=== PATIENT | male | born 1940 | race Caucasian/White ===

== ENCOUNTER 2020-09-22 17:20 | Emergency (ER) | payer MEDICARE ==
[~2020-09-22] VITALS: Ht 157.5 cm; Wt 63.6 kg
--- NOTE | 2020-09-22 17:32 | NUR ---
grand daughter Sheri Garcia [phone] contact
--- NOTE | 2020-09-22 18:07 | NUR ---
pt smokes 4-[address] daily, he may not mention a need for a patch or anything, very quite and polite old man
[2020-09-22 18:08] LABS: BASOPHILS # (AUTO) 0.1 X10'3 (0-0.2); EOSINOPHILS # (AUTO) 0.2 X10'3 (0-0.9); HEMATOCRIT 41.6 % (42.0-52.0); HEMOGLOBIN 14.1 g/dl (14.0-17.9); LYMPHOCYTES # (AUTO) 1.4 X10'3 (1.1-4.8); LYMPHOCYTES % (AUTO) 16.1 % (21-51); MEAN CORPUSCULAR HEMOGLOBIN 33.3 PG (27.0-31.0); MEAN CORPUSCULAR VOLUME 97.8 FL (78-98); MONOCYTES # (AUTO) 0.8 X10'3 (0-0.9); MONOCYTES % (AUTO) 8.5 % (2-12); NEUTROPHILS # (AUTO) 6.4 X10'3 (1.8-7.7); NEUTROPHILS % (AUTO) 72.4 % (42-75); PLATELET COUNT 332 X10'3 (140-440); RED BLOOD COUNT 4.26 X10'6 (4.70-6.10); RED CELL DISTRIBUTION WIDTH 13.9 % (11.5-14.5); WHITE BLOOD COUNT 8.9 X10'3 (4.5-11.0)
[2020-09-22 18:16] LABS: CLARITY,URINE CLEAR (Clear); COLOR,URINE YELLOW (Yellow); GLUCOSE, URINE NEGATIVE (Neg); KETONES,URINE TRACE mg/dl (Neg); LEUKOCYTE ESTERASE ,URINE NEGATIVE (Neg); NITRITES, URINE NEGATIVE (Neg); OCCULT BLOOD,URINE NEGATIVE (Neg); PROTEIN,URINE NEGATIVE (Neg)
[2020-09-22 18:19] LABS: UA COLLECTION TYPE CLN CATCH MIDSTREAM
[2020-09-22 18:23] LABS: ALANINE AMINOTRANSFERASE 25 U/L (12-78); ALBUMIN 3.9 G/DL (3.4-5.0); ALBUMIN/GLOBULIN RATIO 1.2 (1.1-1.5); ALKALINE PHOSPHATASE 258 IU/L (46-116); ANION GAP 7 (8-16); ASPARTATE AMINO TRANSFERASE 17 U/L (10-37); BILIRUBIN,TOTAL 0.4 MG/DL (0.1-1.0); BLOOD UREA NITROGEN 15 MG/DL (7-18); CALCIUM 8.9 MG/DL (8.5-10.1); CHLORIDE 105 MMOL/L (99-107); CREATININE 0.88 MG/DL (0.60-1.10); GLUCOSE 99 MG/DL (70-104); POTASSIUM 3.7 MMOL/L (3.5-5.1); SODIUM 142 MMOL/L (135-145); TOTAL CARBON DIOXIDE 30.4 MMOL/L (24-32); TOTAL PROTEIN 7.1 G/DL (6.4-8.2); eGFR 83 ML/MIN
[2020-09-22 18:28] LABS: URINE AMPHETAMINE SCREEN NEGATIVE (Neg); URINE BARBITUATE SCREEN NEGATIVE (Neg); URINE BENZODIAZEPINES SCREEN NEGATIVE (Neg); URINE CANNABINOID SCREEN NEGATIVE (Neg); URINE COCAINE SCREEN NEGATIVE (Neg); URINE METHADONE SCREEN NEGATIVE (Neg); URINE OPIATE SCREEN NEGATIVE (Neg); URINE PHENCYCLIDINE SCREEN NEGATIVE (Neg)
[2020-09-22 18:32] LABS: ETHANOL < 0.010 GM/DL (0.0-0.010)
--- NOTE | 2020-09-22 19:00 | NUR ---
Pt laying awake in bed. Pt A/O x 1 (self). Spoke with sister and was able to obtain his medication list.
[2020-09-22] MEDS ORDERED: FLO0.4C PO (19:13)
[2020-09-22] MEDS ORDERED: DONE5TAB7 PO (19:13)
[2020-09-22] MEDS ORDERED: ASCO500T28 PO (19:13)
[2020-09-22] MEDS ORDERED: AMLO10TA28 PO (19:13)
[2020-09-22] MEDS ORDERED: ATOR40TA7 PO (19:13)
[2020-09-22] MEDS ORDERED: ZINC50TA67 PO (19:13)
--- NOTE | 2020-09-22 21:00 | NUR ---
Pt has been wandering around trying to find a way out almost constantly, needing redirection every few minutes. Pt would intermittently lie in bed, but only for a minute or two then get up again and try and get out.
--- NOTE | 2020-09-22 22:22 | NUR ---
Griffin undone in [facility] - 09/22/20 at 2224 by GENNALOR BONNIE TAYLOR ([employer] [place] [employer] HOME: [phone] CELL: [phone] Addendum: 09/22/20 at 2223 by GENNALOR Amendment francie in [facility] - 09/22/20 at 2224 by NCAYLOR ARLEY TAYLOR ([employer] [place] [employer] HOME: [phone] CELL: [phone]
--- NOTE | 2020-09-22 22:24 | NUR ---
ARLEY TAYLOR ([employer]STER IN [employer]) HOME: [phone] CELL: [phone]
--- NOTE | 2020-09-22 23:00 | NUR ---
Pt fell asleep around 2129 and remains asleep without signs of distress.
--- NOTE | 2020-09-23 01:00 | NUR ---
Pt sleeping calmly without signs of distress.
--- NOTE | 2020-09-23 03:00 | NUR ---
Pt up to the bathroom and then returned to bed and able to fall back to sleep.
--- NOTE | 2020-09-23 05:00 | NUR ---
Pt asleep in bed without signs of distress.
[2020-09-23 05:35] VITALS: BP_DIAS 83
--- NOTE | 2020-09-23 06:30 | NUR ---
Pt wandering in the unit. Pt given paper and crayon and he went back to his bed.
--- NOTE | 2020-09-23 07:30 | NUR ---
Pt sleeping. Respirations unlabored. NAD
[2020-09-23] MEDS ORDERED: tamsulosin 0.4mg capsule PO SCH (08:00)
[2020-09-23] MEDS ORDERED: amLODIPine 5mg tablet PO SCH (08:00)
[2020-09-23] MEDS ORDERED: atorvastatin 20mg tablet PO SCH (08:00)
[2020-09-23] MEDS ORDERED: donepezil 5mg tablet PO SCH (08:00)
[2020-09-23] MEDS ORDERED: zinc sulfate 220mg capsule PO SCH (08:00)
[2020-09-23] MEDS ORDERED: ascorbic acid 500mg tablet PO SCH (08:00)
[2020-09-23 08:23] VITALS: BP_SYST 131
--- NOTE | 2020-09-23 08:30 | NUR ---
Pt sitting up in bed eating breakfast.
--- NOTE | 2020-09-23 09:30 | NUR ---
Pt resting quietly in his bed. Pt denies any needs at this time.
--- NOTE | 2020-09-23 10:31 | NUR ---
Pt sleeping in his bed. Respirations unlabored. NAD
--- NOTE | 2020-09-23 11:08 | NUR ---
Pt's family called and asked we call Claudette at [facility] as they were wanting information on the patient from us. Spoke with Claudette and she asked that we fax over a cover sheet and the pt's chart for them to look at.
--- NOTE | 2020-09-23 11:24 | NUR ---
Case management returned the page. They will start working on helping get the pt placed at [facility]. She did ask that we go ahead and fax the requested face sheet and chart to [facility].
--- NOTE | 2020-09-23 11:26 | NUR ---
Pt wandering and stating, "I don't understand why I am in [facility]." Let pt know that we are trying to make sure he is safe when he leaves the hospital. Also, let him know that his family know where he is at and they are also working on trying to make sure things are safe for him. Pt was redirectable and went back to his bed.
--- NOTE | 2020-09-23 11:35 | NUR ---
Colleen from Case [employer] called back. She spoke with the pt's family and found out that the pt's brother, Elías Garcia, is the pt's POA. His number is [phone]. The pt's family is at [place] now talking with them. Colleen will talk with them once they leave there to see where they would like the pt placed. Addendum: 09/23/20 at 1209 by [email or web address] Brittni
--- NOTE | 2020-09-23 12:09 | NUR ---
Brittni called and asked if we could order a CXR to r/o TB for residential care placement and also a rapid COVID. Dr Dewitt gave verbal order for both.
--- NOTE | 2020-09-23 12:50 | NUR ---
Pt wandering around as he wants to walk. Let him know he is free to walk as long as he stays on this side of the curtains.
--- NOTE | 2020-09-23 13:29 | NUR ---
Pt resting quietly in bed.
--- NOTE | 2020-09-23 14:32 | NUR ---
Pt continues to wander around the unit. Pt easily reminded to stay on this side of the curtains.
--- NOTE | 2020-09-23 15:25 | NUR ---
Brittni the Manager Staffing is at pt's bedside speaking with the pt's niece at bedside.
--- NOTE | 2020-09-23 15:41 | NUR ---
Dr Stevens at bedside talking with pt and his niece. Pt's niece, Teresa, is willing to take the pt home for the weekend as they are not able to get him into [facility] until Saturday. Brittni, [employer], is faxing all the paperwork to [facility] and will f/u with them and the pt's family on Saturday.
--- NOTE | 2020-09-23 16:36 | NUR ---
I SPOKE WITH PATIENT'S SISTER IN LAW, ARLEY TAYLOR AND TAM YAN. THEY WISH TO PLACE PATIENT IN [facility]. RCFE FORM COMPLETED, AND SIGNED BY TAM AND DR AYALA. THIS HAS BEEN FAXED TO [facility]. EARLIER TODAY, I SPOKE WITH AUSTIN AT [facility]. THEY ARE AGREEABLE TO ACCEPTING ONCE PAPERWORK SUBMITTED, AND FINANCIAL INFORMATION PROVIDED. TAM PRESENTED TO BEDSIDE. SHE STATES THAT SHE WAS AT THE [email or web address] ALL DAY TODAY, TO OBTAIN NECESSARY FINANCIAL DOCUMENTATION FOR [facility]. THE [email or web address] NEEDS UNTIL SATURDAY TO PROVIDE THIS. TAM STATES THAT SHE WILL TAKE PATIENT HOME. SHE AND HER ADULT SON, WILL PROVIDE SUPERVISION UNTIL SATURDAY WHEN [facility] CAN TAKE HIM. DISCUSSED WITH RN AND DR AYALA. ALL ARE IN AGREEMENT WITH [facility] PLAN. CONTACT INFO: ANGELIAEllaTracieRoya [employer] AND ARLEY TAYLOR -BROTHER AND EMELIA. [phone] AND [phone] FARRAH TAYLOR [phone] [facility] FARRAH TAYLOR [phone]
== END 2020-09-23 15:56 ==
LOC: EDBD 17:20 → ER 17:20
DX: F03.90 Unspecified dementia, unspecified severity, without behavioral disturbance, psychotic disturbance, mood disturbance, and anxiety (principal); Z20.822 Contact with and (suspected) exposure to COVID-19; Z79.899 Other long term (current) drug therapy
CPT/HCPCS: 36415; 70450; 71046; 72125; 80053; 80305; 80320; 81003; 84443; 85025; 87426; 99285

== ENCOUNTER 2020-10-21 07:58 | Emergency (ER) | payer MEDICARE ==
[~2020-10-21] VITALS: Ht 175.3 cm; Wt 63.6 kg
[~2020-10-21 07:58] MED LIST: AMLO10TA28 PO; ASCO500T28 PO; ATOR40TA7 PO; DONE5TAB7 PO; FLO0.4C PO; ZINC50TA67 PO
[2020-10-21 09:00] LABS: BASOPHILS % (AUTO) 0.5 % (0-1); EOSINOPHILS # (AUTO) 0.3 X10'3 (0-0.9); EOSINOPHILS % (AUTO) 4.7 % (0-6); HEMOGLOBIN 12.2 g/dl (14.0-17.9); LYMPHOCYTES # (AUTO) 1.2 X10'3 (1.1-4.8); LYMPHOCYTES % (AUTO) 17.3 % (21-51); MEAN CORPUSCULAR HEMOGLOBIN 32.9 PG (27.0-31.0); MEAN CORPUSCULAR VOLUME 96.8 FL (78-98); MEAN PLATELET VOLUME 8.7 FL (7.4-10.4); MONOCYTES # (AUTO) 0.6 X10'3 (0-0.9); MONOCYTES % (AUTO) 9.1 % (2-12); NEUTROPHILS # (AUTO) 4.7 X10'3 (1.8-7.7); NEUTROPHILS % (AUTO) 68.4 % (42-75); PLATELET COUNT 237 X10'3 (140-440); RED BLOOD COUNT 3.72 X10'6 (4.70-6.10); RED CELL DISTRIBUTION WIDTH 13.6 % (11.5-14.5); WHITE BLOOD COUNT 6.9 X10'3 (4.5-11.0)
[2020-10-21 09:17] LABS: ALANINE AMINOTRANSFERASE 37 U/L (12-78); ALBUMIN 3.2 G/DL (3.4-5.0); ALBUMIN/GLOBULIN RATIO 1.1 (1.1-1.5); ALKALINE PHOSPHATASE 210 IU/L (46-116); ANION GAP 6 (8-16); ASPARTATE AMINO TRANSFERASE 20 U/L (10-37); BILIRUBIN,TOTAL 0.4 MG/DL (0.1-1.0); BLOOD UREA NITROGEN 15 MG/DL (7-18); BUN/CREATININE RATIO 29.4 (5.4-32.0); CALCIUM 8.4 MG/DL (8.5-10.1); CHLORIDE 111 MMOL/L (99-107); CREATININE 0.51 MG/DL (0.60-1.10); GLUCOSE 82 MG/DL (70-104); POTASSIUM 3.6 MMOL/L (3.5-5.1); SODIUM 147 MMOL/L (135-145); TOTAL CARBON DIOXIDE 29.7 MMOL/L (24-32); TOTAL PROTEIN 6.1 G/DL (6.4-8.2); eGFR > 90 ML/MIN
[2020-10-21 09:33] LABS: CLARITY,URINE CLEAR (Clear); COLOR,URINE STRAW (Yellow); GLUCOSE, URINE NEGATIVE (Neg); KETONES,URINE NEGATIVE (Neg); LEUKOCYTE ESTERASE ,URINE NEGATIVE (Neg); NITRITES, URINE NEGATIVE (Neg); OCCULT BLOOD,URINE NEGATIVE (Neg); PH,URINE 6.5 (4.8-8.0); PROTEIN,URINE NEGATIVE (Neg); UA COLLECTION TYPE FOLEY CATH; UROBILINOGEN,URINE 0.2 E.U/dL (0.2-1.0)
[2020-10-21 09:45] VITALS: BP 133/47
[2020-10-21 09:46] LABS: URINE AMPHETAMINE SCREEN NEGATIVE (Neg); URINE BARBITUATE SCREEN NEGATIVE (Neg); URINE BENZODIAZEPINES SCREEN NEGATIVE (Neg); URINE CANNABINOID SCREEN NEGATIVE (Neg); URINE COCAINE SCREEN NEGATIVE (Neg); URINE METHADONE SCREEN NEGATIVE (Neg); URINE OPIATE SCREEN NEGATIVE (Neg); URINE PHENCYCLIDINE SCREEN NEGATIVE (Neg)
[2020-10-21] MEDS ORDERED: NYST1000 PO (10:11)
--- NOTE | 2020-10-21 10:40 | NUR ---
Called listed number on chart and spoke with lilian Garcia, who stated that patient was living now at [facility] number [phone]. Called [facility] and was unable to speak to Nurse, Trinh. Baseball Inspector And Repairer stated that Trinh would call back when able.
--- NOTE | 2020-10-21 10:48 | NUR ---
Spoke with Trinh who stated that they usually use [facility] or family will give patient a ride back to [place]. SBAR report given to Trinh. Will reach out to [facility] [employer].
[2020-10-21] MEDS ORDERED: haloperidol lactate 5mg/ml inj IM ONE (10:55)
--- NOTE | 2020-10-21 11:40 | NUR ---
Devora from [facility] called regarding [facility] placement. She stated that Dr Mcgrath (Psyc) has read 1799 and is familiar with Pt. sends message that Pt will only need to be medically cleared for ED and that he wanted her to be a direct admit to [facility]. The admission had to do with her insurance being accepted.
== END 2020-10-21 12:27 | disposition home or self-care (01) ==
LOC: ER 07:58
DX: S42.031A Displaced fracture of lateral end of right clavicle, initial encounter for closed fracture (principal); R40.4 Transient alteration of awareness; B37.0 Candidal stomatitis; E87.0 Hyperosmolality and hypernatremia; A52.17 General paresis; Z79.899 Other long term (current) drug therapy; W01.198A Fall on same level from slipping, tripping and stumbling with subsequent striking against other object, initial encounter; Y93.89 Activity, other specified; Y92.89 Other specified places as the place of occurrence of the external cause; Y99.8 Other external cause status
CPT/HCPCS: 36415; 70450; 71045; 80053; 80305; 81003; 82948; 85025; 93005; 99285

== ENCOUNTER 2020-10-28 09:56 | Emergency (ER) | payer MEDICARE ==
[~2020-10-28] VITALS: Ht 167.6 cm; Wt 59.1 kg
[~2020-10-28 09:56] MED LIST changes: +NYST1000 PO
[2020-10-28 10:44] LABS: ALANINE AMINOTRANSFERASE 37 U/L (12-78); ALKALINE PHOSPHATASE 220 IU/L (46-116); ANION GAP 3 (8-16); ASPARTATE AMINO TRANSFERASE 22 U/L (10-37); BILIRUBIN,TOTAL 0.3 MG/DL (0.1-1.0); BLOOD UREA NITROGEN 11 MG/DL (7-18); BUN/CREATININE RATIO 25.6 (5.4-32.0); CALCIUM 8.3 MG/DL (8.5-10.1); CHLORIDE 109 MMOL/L (99-107); CREATININE 0.43 MG/DL (0.60-1.10); GLUCOSE 83 MG/DL (70-104); POTASSIUM 3.8 MMOL/L (3.5-5.1); SODIUM 143 MMOL/L (135-145); TOTAL CARBON DIOXIDE 30.8 MMOL/L (24-32); TOTAL PROTEIN 6.1 G/DL (6.4-8.2); eGFR > 90 ML/MIN
[2020-10-28 10:50] LABS: BASOPHILS # (AUTO) 0.1 X10'3 (0-0.2); BASOPHILS % (AUTO) 0.7 % (0-1); EOSINOPHILS # (AUTO) 0.4 X10'3 (0-0.9); HEMATOCRIT 34.7 % (42.0-52.0); LYMPHOCYTES # (AUTO) 1.9 X10'3 (1.1-4.8); MEAN CORPUSCULAR HEMOGLOBIN 33.5 PG (27.0-31.0); MEAN CORPUSCULAR HGB CONC 34.6 g/dL (33.0-36.5); MEAN CORPUSCULAR VOLUME 96.9 FL (78-98); MEAN PLATELET VOLUME 8.5 FL (7.4-10.4); MONOCYTES # (AUTO) 0.9 X10'3 (0-0.9); MONOCYTES % (AUTO) 10.4 % (2-12); NEUTROPHILS # (AUTO) 5.1 X10'3 (1.8-7.7); NEUTROPHILS % (AUTO) 60.9 % (42-75); PLATELET COUNT 258 X10'3 (140-440); RED BLOOD COUNT 3.59 X10'6 (4.70-6.10); RED CELL DISTRIBUTION WIDTH 13.6 % (11.5-14.5); WHITE BLOOD COUNT 8.4 X10'3 (4.5-11.0)
[2020-10-28 10:55] LABS: ETHANOL < 0.010 GM/DL (0.0-0.010); TROPONIN I < 0.04 NG/ML (0.0-0.05)
[2020-10-28 11:18] LABS: CLARITY,URINE CLEAR (Clear); COLOR,URINE YELLOW (Yellow); GLUCOSE, URINE NEGATIVE (Neg); KETONES,URINE NEGATIVE (Neg); LEUKOCYTE ESTERASE ,URINE NEGATIVE (Neg); NITRITES, URINE NEGATIVE (Neg); OCCULT BLOOD,URINE NEGATIVE (Neg); PH,URINE 7.5 (4.8-8.0); PROTEIN,URINE NEGATIVE (Neg); UROBILINOGEN,URINE 0.2 E.U/dL (0.2-1.0)
[2020-10-28 11:19] LABS: UA COLLECTION TYPE STRAIGHT CATH
[2020-10-28 11:31] LABS: URINE AMPHETAMINE SCREEN NEGATIVE (Neg); URINE BARBITUATE SCREEN NEGATIVE (Neg); URINE BENZODIAZEPINES SCREEN NEGATIVE (Neg); URINE CANNABINOID SCREEN NEGATIVE (Neg); URINE COCAINE SCREEN NEGATIVE (Neg); URINE METHADONE SCREEN NEGATIVE (Neg); URINE OPIATE SCREEN NEGATIVE (Neg); URINE PHENCYCLIDINE SCREEN NEGATIVE (Neg)
--- NOTE | 2020-10-28 11:35 | NUR ---
sis in law Donna Garcia C: Avail for patricio
[2020-10-28 11:54] VITALS: BP 133/80
== END 2020-10-28 12:41 | disposition home or self-care (01) ==
LOC: ER 09:56
DX: R53.1 Weakness (principal); R41.82 Altered mental status, unspecified; F03.90 Unspecified dementia, unspecified severity, without behavioral disturbance, psychotic disturbance, mood disturbance, and anxiety; R40.0 Somnolence; E72.20 Disorder of urea cycle metabolism, unspecified
CPT/HCPCS: 36415; 70450; 71045; 80053; 80305; 80320; 81003; 82140; 84443; 84484; 85025; 93005; 99285

== ENCOUNTER 2020-11-07 01:12 | Emergency (ER) | payer MEDICARE ==
[~2020-11-07] VITALS: Ht 170.2 cm; Wt 68.1 kg
[~2020-11-07 01:12] MED LIST changes: -NYST1000 PO
[2020-11-07 01:15] VITALS: BP 160/87
--- NOTE | 2020-11-07 02:41 | NUR ---
[facility] CONSULTED FOR TRANSPORT. ETA 45 MINUTES PENDING POA CONTACT AND APPROVAL
--- NOTE | 2020-11-07 03:04 | NUR ---
Per manager community relations, family member Donna will come and hot die picker patient and return him to [facility].
== END 2020-11-07 03:42 | disposition home or self-care (01) ==
LOC: ER 01:12
DX: S51.011A Laceration without foreign body of right elbow, initial encounter (principal); S09.90XA Unspecified injury of head, initial encounter; G30.9 Alzheimer's disease, unspecified; F02.80 Dementia in other diseases classified elsewhere, unspecified severity, without behavioral disturbance, psychotic disturbance, mood disturbance, and anxiety; Z79.899 Other long term (current) drug therapy; E78.00 Pure hypercholesterolemia, unspecified; Y04.2XXA Assault by strike against or bumped into by another person, initial encounter; Y93.89 Activity, other specified; Y92.89 Other specified places as the place of occurrence of the external cause; Y99.8 Other external cause status
CPT/HCPCS: 70450; 72125; 99285